=== PATIENT | male | born 1985 | race Caucasian/White ===

== ENCOUNTER 2021-08-26 18:00 | Emergency (ER) | payer OTHER ==
[~2021-08-26] VITALS: Ht 177.8 cm; Wt 72.0 kg
--- NOTE | 2021-08-26 18:17 | PHYS DOC ---
Adult General Chief Complaint Chief Complaint: ANKLE PROBLEM HPI HPI Patient is a 36-year-old male, otherwise healthy who presents with left ankle pain, 6 out of 10, dull and achy in nature after twisting it last night while camping. Denies any other injuries. States he is able to walk but it causes discomfort. States he took some ibuprofen about 6 hours ago. Review of Systems Review of Systems Review of systems otherwise unremarkable except noted in HPI Physical Exam Physical Exam Constitutional: Well developed, well nourished, no acute distress, non-toxic appearance. [] Skin: Warm, dry, no erythema, no rash. [] Back: No tenderness Extremities: Mild tenderness around left ankle, just around lateral malleolus with no obvious deformities, or bruising with mild swelling, neurovascular exam intact, able to walk Neurologic: Alert and oriented X 3, normal motor function, normal sensory function, no focal deficits noted. [] Psychologic: Affect normal, judgement normal, mood normal. [] EKG EKG [] Radiology/Procedures Radiology/Procedures [] Heart Score C/O Chest Pain: No Risk Factors: Risk Factors: DM, Current or recent (<one month) smoker, HTN, HLP, family history of CAD, obesity. Risk Scores: Risk Factors: DM, Current or recent (<one month) smoker, HTN, HLP, family history of CAD, obesity. Course & Med Decision Making Course & Med Decision Making Patient is a 36-year-old male who presents with left ankle pain Vital signs not concerning. Physical exam noted above. Given ice pack. Stated he took ibuprofen about 5 to 6 hours ago. Imaging with no acute osseous abnormalities. Artur wrap. Discussed symptom management at home. Advised to follow-up with primary care next week to set up an ER follow-up visit for reevaluation. Gave return precautions to the ED. Patient grateful, verbalized understanding and agreed with plan of discharge. [] Dragon Disclaimer Dragon Disclaimer This electronic medical record was generated, in whole or in part, using a voice recognition dictation system. Departure Departure: Impression: Primary Impression: Ankle sprain Disposition: HOME / SELF CARE / HOMELESS Condition: GOOD Referrals: PCP,UNKNOWN (PCP) JAGDEEP BOND MD Patient Instructions: RICE - Routine Care for Injuries Additional Instructions: Thank you for coming into the emergency department tonight and allowing us to take care of you. Please read the attached information carefully to go over things we discussed. Please continue a Tylenol, ibuprofen and ice regimen as needed and discussed. Please follow-up with your primary care physician on Saturday. Please come back to the ED with new or concerning symptoms as we discussed. SEFERINO CEJA MD Aug 26, 2021 18:17
--- NOTE | 2021-08-26 19:29 | RAD ---
XR EXAM OF ANKLE_LEFT 3V, XR LT TIBIA + FIBULA Clinical Indication: Reason: Twisted left ankle, pain /fall, pain. Comparison: None. Findings: There is mild lateral ankle soft tissue swelling. The ankle mortise is intact. No acute fracture is i dentified. There is tiny inferior calcaneal bone spur. Visualized foot is unremarkable. The knee joint is intact. There is no knee joint effusion. 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 There is no acute fracture of the tibia or fibula. No soft tissue swell ing of the calf is identified. IMPRESSION: There is no acute fracture of the ankle, tibia or, or fibula. Electronically signed by: Vicente Yanez MD (08/26/2021 7:27 PM) KIERA
[2021-08-26] MEDS ORDERED: oxyCODONE/APAP 5/325 1 TAB TABLET ONE (19:59)
[2021-08-26] MEDS ORDERED: oxyCODONE/APAP 5/325 1 TAB TABLET PO ONE (20:00)
[2021-08-26 20:17] VITALS: BP 126/72
== END 2021-08-26 20:05 | disposition home or self-care (01) ==
LOC: ER 18:00
DX: S93.402A Sprain of unspecified ligament of left ankle, initial encounter (principal); X50.9XXA Other and unspecified overexertion or strenuous movements or postures, initial encounter; Y93.89 Activity, other specified; Y92.89 Other specified places as the place of occurrence of the external cause; Y99.8 Other external cause status
CPT/HCPCS: 73590; 73610; 99284-25